=== PATIENT | female | born 1990 | race American Indian/Alaskan Native ===

== ENCOUNTER 2018-06-04 02:36 | Emergency (ER) | payer SELFPAY ==
[2018-06-04] MEDS ORDERED: ZOFRAN ODT PO ONE (03:18)
[2018-06-04 03:42] LABS: Basophils % (Auto) 0.5 % (0.0-1.8); Eosinophils # (Auto) 0.1 K/mm3 (0.0-0.4); Eosinophils % (Auto) 0.9 % (0.0-4.3); Hemoglobin 13.1 gm/dl (10.1-14.3); Lymphocytes # (Auto) 1.9 K/mm3 (1.2-5.4); Lymphocytes % (Auto) 21.9 % (13.4-35.0); Mean Corpuscular HGB Conc 34 % (30-34); Mean Corpuscular Hemoglobin 31 pg (28-32); Mean Corpuscular Volume 93 fl (79-97); Monocytes # (Auto) 0.6 K/mm3 (0.0-0.8); Monocytes % (Auto) 6.3 % (0.0-7.3); Platelet Count 344 K/mm3 (140-440); Red Blood Count 4.21 M/mm3 (3.65-5.03)
[2018-06-04 04:02] LABS: Alanine Aminotransferase 15 units/L (7-56); Albumin 4.2 g/dL (3.9-5); BUN/Creatinine Ratio 17; Blood Urea Nitrogen 10 mg/dL (7-17); Hemolysis Index 18
[2018-06-04] MEDS ORDERED: MOTRIN PO ONE (05:13)
[2018-06-04 05:56] LABS: Bilirubin,Urine NEG (Negative); Blood,Urine LG (Negative); Calcium Oxalate Crystals,Urine 2+; Color,Urine Yellow (Yellow); Mucus,Urine 1+ /HPF; Urobilinogen,Urine < 2.0 mg/dL (<2.0)
[2018-06-04 06:05] LABS: RBC,Urine > 182.0 /HPF (0.0-6.0)
--- NOTE | 2018-06-04 06:23 | Emergency Department Report ---
ED Abdominal Pain HPI - General Chief Complaint: Abdominal Pain Stated Complaint: ABD PAIN Time Seen by Provider: 06/04/18 06:21 Source: patient Mode of arrival: Ambulatory Limitations: No Limitations - History of Present Illness Initial Comments: 28-year-old female states that she has had right lower quadrant discomfort radiating to her flank area. States kidney stones. She does not work fever or chills. She states she vomited once with some mild ongoing nausea. 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 She denies diarrhea or any change in her bowel habits. She denies vaginal discharge. MD Complaint: abdominal pain -: Gradual, days(s) Location: RLQ Radiation: R flank Migration to: no migration Severity: moderate Quality: aching Consistency: intermittent Improves With: nothing Worsens With: nothing Associated Symptoms: denies other symptoms (except as above indicated) - Related Data Previous Rx's Medication Instructions Recorded Last Taken Type Tramadol HCl [Ultram] 50 mg PO Q6H PRN #10 tablet 06/04/18 Unknown Rx cefUROXime [Ceftin] 250 mg PO Q12H #10 tablet 06/04/18 Unknown Rx Allergies Allergy/AdvReac Type Severity Reaction Status Date / Time No Known Allergies Allergy Unverified 06/04/18 03:12 ED Review of Systems ROS: Stated complaint: ABD PAIN Other details as noted in HPI Constitutional: denies: chills, fever Eyes: denies: eye pain, eye discharge, vision change ENT: denies: ear pain, throat pain Respiratory: denies: cough, shortness of breath, wheezing Cardiovascular: denies: chest pain, palpitations Endocrine: no symptoms reported Gastrointestinal: abdominal pain, nausea, vomiting. denies: diarrhea Genitourinary: denies: urgency, dysuria, discharge Musculoskeletal: denies: back pain, joint swelling, arthralgia Skin: denies: rash, lesions Neurological: denies: headache, weakness, paresthesias Psychiatric: denies: anxiety, depression Hematological/Lymphatic: denies: easy bleeding, easy bruising ED Past Medical Hx - Past Medical History Previous Medical History?: No - Surgical History Past Surgical History?: Yes Additional Surgical History: kidney stones - Social History Smoking Status: Current Every Day Smoker Substance Use Type: None - Medications Home Medications: Home Medications Medication Instructions Recorded Confirmed Last Taken Type Tramadol HCl [Ultram] 50 mg PO Q6H PRN #10 tablet 06/04/18 Unknown Rx cefUROXime [Ceftin] 250 mg PO Q12H #10 tablet 06/04/18 Unknown Rx ED Physical Exam - General Limitations: No Limitations General appearance: alert, in no apparent distress - Head Head exam: Present: atraumatic, normocephalic - Eye Eye exam: Present: normal appearance. Absent: scleral icterus - ENT ENT exam: Present: mucous membranes moist - Neck Neck exam: Present: normal inspection - Respiratory Respiratory exam: Present: normal lung sounds bilaterally. Absent: respiratory distress - Cardiovascular Cardiovascular Exam: Present: regular rate, normal rhythm. Absent: systolic murmur, diastolic murmur, rubs, gallop - GI/Abdominal GI/Abdominal exam: Present: soft, normal bowel sounds. Absent: distended, tenderness, guarding, rebound, rigid, organomegaly, mass, bruit, pulsatile mass , hernia - Extremities Exam Extremities exam: Present: normal inspection - Back Exam Back exam: Present: normal inspection. Absent: CVA tenderness (R), CVA tenderness (L) - Neurological Exam Neurological exam: Present: alert, oriented X3, CN II-XII intact. Absent: motor sensory deficit - Psychiatric Psychiatric exam: Present: normal affect, normal mood - Skin Skin exam: Present: warm, dry, intact, normal color. Absent: rash ED Course Vital Signs 06/04/18 06/04/18 06/04/18 02:43 06:56 07:00 Temperature 98.0 F Pulse Rate 65 Respiratory 18 Rate Blood Pressure 133/99 98/53 O2 Sat by Pulse 95 100 100 Oximetry 06/04/18 06/04/18 06/04/18 07:31 08:08 08:30 Temperature Pulse Rate Respiratory Rate Blood Pressure 105/56 86/37 88/43 O2 Sat by Pulse 86 98 97 Oximetry 06/04/18 09:00 Temperature Pulse Rate Respiratory Rate Blood Pressure 93/50 O2 Sat by Pulse 99 Oximetry - Reevaluation(s) Reevaluation #1: On reexamination the patient states her symptoms have improved. She was given analgesia and an antiemetic. She had no vomiting. A repeat examination of her abdomen was totally benign. Her right sided abdominal pain does not clinically correlated with the nonspecific CT findings on the left. Further evaluation by acoustical tile drill press operator is recommended. She will be placed on an antibiotic pending urine culture. She has left-sided nephrolithiasis which I do not think could possibly clinically correlate. The patient is nontoxic and resting comfortably. 06/04/18 10:15 ED Medical Decision Making - Lab Data Result diagrams: 06/04/18 03:30 06/04/18 03:30 Laboratory Results - last 24 hr 06/04/18 06/04/18 06/04/18 03:30 03:30 03:30 WBC 8.8 RBC 4.21 Hgb 13.1 Hct 39.0 MCV 93 MCH 31 MCHC 34 RDW 14.0 Plt Count 344 Lymph % (Auto) 21.9 [place] % (Auto) 6.3 Eos % (Auto) 0.9 Baso % (Auto) 0.5 Lymph # 1.9 [place] # 0.6 Eos # 0.1 Baso # 0.0 Seg Neutrophils % 70.4 H Seg Neutrophils # 6.2 Sodium 140 Potassium 3.8 Chloride 104.8 Carbon Dioxide 23 Anion Gap 16 BUN 10 Creatinine 0.6 L Estimated GFR > 60 BUN/Creatinine Ratio 17 Glucose 99 Calcium 9.0 Total Bilirubin < 0.20 AST 20 ALT 15 Alkaline Phosphatase 72 Total Protein 7.2 Albumin 4.2 Albumin/Globulin Ratio 1.4 HCG, Qual Negative Urine Color Urine Turbidity Urine pH Ur Specific [place] Urine Protein Urine Glucose (UA) Urine Ketones Urine Blood Urine Nitrite Urine Bilirubin Urine Urobilinogen Ur Leukocyte Esterase Urine WBC (Auto) Urine RBC (Auto) U Epithel Cells (Auto) Calcium Oxalate Crystal Urine Mucus 06/04/18 05:28 WBC RBC Hgb Hct MCV MCH MCHC RDW Plt Count Lymph % (Auto) [place] % (Auto) Eos % (Auto) Baso % (Auto) Lymph # [place] # Eos # Baso # Seg Neutrophils % Seg Neutrophils # Sodium Potassium Chloride Carbon Dioxide Anion Gap BUN Creatinine Estimated GFR BUN/Creatinine Ratio Glucose Calcium Total Bilirubin AST ALT Alkaline Phosphatase Total Protein Albumin Albumin/Globulin Ratio HCG, Qual Urine Color Yellow Urine Turbidity Cloudy Urine pH 5.0 Ur Specific [place] 1.017 Urine Protein 30 mg/dl Urine Glucose (UA) Neg Urine Ketones Neg Urine Blood Lg Urine Nitrite Neg Urine Bilirubin Neg Urine Urobilinogen < 2.0 Ur Leukocyte Esterase Neg Urine WBC (Auto) 10.0 H Urine RBC (Auto) > 182.0 U Epithel Cells (Auto) 15.0 H Calcium Oxalate Crystal 2+ Urine Mucus 1+ - Radiology Data Radiology results: report reviewed Critical care attestation.: If time is entered above; I have spent that time in minutes in the direct care of this critically ill patient, excluding procedure time. ED Disposition Clinical Impression: Left nephrolithiasis Abdominal pain Qualifiers: Abdominal location: right lower quadrant Qualified Code(s): R10.31 - Right lower quadrant pain Disposition: TO HOME OR SELFCARE Is pt being admited?: No Does the pt Need Aspirin: No Condition: Stable Instructions: Abdominal Pain (ED), Kidney Stones (ED) Additional Instructions: Return to the emergency department any increased pain vomiting fever or chills. Rx for possible urinary tract infection. Follow-up on your CT report with a acoustical tile drill press operator. Follow-up on your kidney stone with a urologist. See referrals. Urine culture should be checked in 2-3 days. Prescriptions: cefUROXime [Ceftin] 250 mg PO Q12H #10 tablet Tramadol HCl [Ultram] 50 mg PO Q6H PRN #10 tablet PRN Reason: Pain , Severe (7-10) Referrals: PRIMARY CARE [Primary Care Provider] - 3-5 Days Time of Disposition: 10:27
[2018-06-04] MEDS ORDERED: NACL 0.9% 1000 ML 1,000 ML IV ONE (06:48)
[2018-06-04] MEDS ORDERED: TORADOL IV ONE (06:48)
[2018-06-04] MEDS ORDERED: ZOFRAN IV ONE ×2 (06:48→08:45)
[2018-06-04] MEDS ORDERED: MORPHINE IV ONE (06:48)
--- NOTE | 2018-06-04 07:58 | Cat Scan Report ---
CT ABDOMEN PELVIS WITHOUT CONTRAST: HISTORY: Right flank pain, kidney stones. COMPARISON: No recent comparison. TECHNIQUE: Helical CT in 1.25mm intervals without IV contrast. Sagittal and coronal reconstructions. FINDINGS: Lung bases: Normal. Liver: Normal. Biliary system: Normal. Pancreas: Normal. Spleen: Normal. Kidneys/ureters/bladder: The kidneys are normal size, contour and position. 2 calyceal stones measuring up to 3 mm are identified in the mid and inferior left kidney. No right calyceal stones are detected. The ureters are unremarkable. Normal bladder. Adrenal glands: Normal. Aorta: Normal. Intestines: Within normal limits given no oral contrast was administered. Appendix: Normal. Pelvic viscera: Fluid-filled tubular structures are identified in the left side of the pelvis adjacent to the uterus measuring up to 5.4 x 3.3 cm in axial plane. This may represent fluid filled bowel loops. Left ovarian cysts or left hydrosalpinx could be considered. The uterus and right adnexa are unremarkable. Ascites: Trace free pelvic fluid. Adenopathy: None. Musculoskeletal: Normal. IMPRESSION: Left nephrolithiasis. Question left ovarian cysts or left hydrosalpinx, see above. No acute inflammatory process is appreciated in
[2018-06-04 08:09] LABS: Amphetamine Screen,Urine PRESUMPTIVE NEGATIVE; Benzodiazepines Screen,Urine PRESUMPTIVE NEGATIVE; Cocaine Screen,Urine PRESUMPTIVE NEGATIVE; Methadone Screen,Urine PRESUMPTIVE NEGATIVE; Opiate Screen,Urine PRESUMPTIVE NEGATIVE
[2018-06-04 08:22] LABS: Cannabinoid Screen,Urine PRESUMPTIVE POSITIVE
[2018-06-04 10:41] VITALS: BP 99/45
== END 2018-06-04 10:57 | disposition home or self-care (01) ==
LOC: ED 02:36
DX: N20.0 Calculus of kidney (principal); F17.200 Nicotine dependence, unspecified, uncomplicated
CPT/HCPCS: 36415; 74176; 80053; 80307; 81001; 84703; 85025; 87086; 96361; 96374; 96375; 96376; 99284; J1885; J2270; J2405; J7030; Q0162

== ENCOUNTER 2018-06-07 10:12 | Emergency (ER) | payer SELFPAY ==
[2018-06-07] MEDS ORDERED: ZOFRAN ODT PO ONE ×2 (10:40→19:11)
[2018-06-07] MEDS ORDERED: DILAUDID IV ONE ×2 (12:28→15:48)
[2018-06-07] MEDS ORDERED: NACL 0.9% 1000 ML 1,000 ML IV ONE (12:28)
[2018-06-07] MEDS ORDERED: TORADOL IV ONE (12:28)
[2018-06-07] MEDS ORDERED: ZOFRAN IV ONE (12:28)
--- NOTE | 2018-06-07 12:30 | Emergency Department Report ---
Blank Doc - Documentation Documentation: Patient is a 28-year-old female said right lower quadrant pain for approximately 3 days. Patient does have a history of kidney stones but was seen 2 days ago and was found to have kidney stones only in the left kidney. There is no hydronephrosis is no hydrocephalus ureter. Patient had blood in the urine but it did not appear to be any obvious infection. Patient also had what could possibly be ovarian cyst on the left but again there is no pathology seen on the CT without contrast on the right side that would explain the patient 's pain. Patient pain is persisted. Patient has had nausea and vomiting. Patient will have a CT of abdomen and pelvis with contrast B redrawn patient be given this for symptomatic relief.
[2018-06-07 12:45] LABS: Basophils % (Auto) 0.6 % (0.0-1.8); Eosinophils % (Auto) 0.3 % (0.0-4.3); Hematocrit 38.4 % (30.3-42.9); Hemoglobin 12.9 gm/dl (10.1-14.3); Lymphocytes # (Auto) 1.8 K/mm3 (1.2-5.4); Lymphocytes % (Auto) 22.9 % (13.4-35.0); Mean Corpuscular HGB Conc 34 % (30-34); Mean Corpuscular Hemoglobin 31 pg (28-32); Mean Corpuscular Volume 91 fl (79-97); Monocytes # (Auto) 0.7 K/mm3 (0.0-0.8); Monocytes % (Auto) 8.7 % (0.0-7.3); Platelet Count 407 K/mm3 (140-440); Red Blood Count 4.22 M/mm3 (3.65-5.03); Red Cell Distribution Width 13.8 % (13.2-15.2)
[2018-06-07 13:04] LABS: BUN/Creatinine Ratio 14; Blood Urea Nitrogen 10 mg/dL (7-17); Calcium 8.8 mg/dL (8.4-10.2); Hemolysis Index 91
--- NOTE | 2018-06-07 15:08 | Emergency Department Report ---
<ANDI CADE FADUMO - Last Filed: 06/07/18 19:56> ED Abdominal Pain HPI - General Chief Complaint: Abdominal Pain Stated Complaint: ABD PAIN Time Seen by Provider: 06/07/18 12:09 - Related Data Previous Rx's Medication Instructions Recorded Last Taken Type cefUROXime [Ceftin] 250 mg PO Q12H #10 tablet 06/04/18 Unknown Rx Naproxen [Naprosyn] 500 mg PO BID PRN #12 tablet 06/07/18 Unknown Rx Ondansetron [Zofran Odt] 4 mg PO Q6H PRN #12 tab.rapdis 06/07/18 Unknown Rx Tramadol HCl [Ultram] 50 mg PO Q6H PRN #12 tablet 06/07/18 Unknown Rx metroNIDAZOLE [Metronidazole] 500 mg PO BID #10 tablet 06/07/18 Unknown Rx Allergies Allergy/AdvReac Type Severity Reaction Status Date / Time No Known Allergies Allergy Unverified 06/04/18 03:12 ED Review of Systems ROS: Stated complaint: ABD PAIN Other details as noted in HPI ED Past Medical Hx - Medications Home Medications: Home Medications Medication Instructions Recorded Confirmed Last Taken Type cefUROXime [Ceftin] 250 mg PO Q12H #10 tablet 06/04/18 Unknown Rx Naproxen [Naprosyn] 500 mg PO BID PRN #12 tablet 06/07/18 Unknown Rx Ondansetron [Zofran Odt] 4 mg PO Q6H PRN #12 tab.rapdis 06/07/18 Unknown Rx Tramadol HCl [Ultram] 50 mg PO Q6H PRN #12 tablet 06/07/18 Unknown Rx metroNIDAZOLE [Metronidazole] 500 mg PO BID #10 tablet 06/07/18 Unknown Rx ED Course Vital Signs 06/07/18 06/07/18 06/07/18 10:35 12:58 12:59 Temperature 98.2 F Pulse Rate 51 L Respiratory 18 18 18 Rate Blood Pressure 125/86 Blood Pressure [Right] O2 Sat by Pulse 100 Oximetry 06/07/18 06/07/18 06/07/18 15:49 19:02 19:11 Temperature Pulse Rate 58 L Respiratory 18 18 18 Rate Blood Pressure Blood Pressure 130/84 [Right] O2 Sat by Pulse 99 Oximetry ED Medical Decision Making - Lab Data Result diagrams: 06/07/18 12:36 06/07/18 12:32 - Medical Decision Making Wet prep positive for Trichomonas and clue cells, negative yeast. Patient informed of results. Patient will be treated for bacterial vaginitis Trichomonas with metronidazole. Patient given metronidazole 2 g by mouth once while in ER. Start metronidazole 500 mg by mouth twice a day 5 days. Discussed prevention options. Follow-up with FIELD EDUCATION DIRECTOR. Discharged home in stable condition. Critical care attestation.: If time is entered above; I have spent that time in minutes in the direct care of this critically ill patient, excluding procedure time. ED Disposition Clinical Impression: History of renal stone, Right ureter dilated, Complex cyst of left ovary, Bacterial vaginitis, Trichomoniasis Abdominal pain Qualifiers: Abdominal location: lower abdomen, unspecified Qualified Code(s): R10.30 - Lower abdominal pain, unspecified Nausea and vomiting Qualifiers: Vomiting type: unspecified Vomiting Intractability: non-intractable Qualified Code(s): R11.2 - Nausea with vomiting, unspecified Uterine fibroid Qualifiers: Uterine leiomyoma location: unspecified location Qualified Code(s): D25.9 - Leiomyoma of uterus, unspecified Ovarian cyst Qualifiers: Laterality: right Qualified Code(s): N83.201 - Unspecified ovarian cyst, right side Disposition: TO HOME OR SELFCARE Condition: Stable Instructions: Bacterial Vaginosis (ED), Ovarian Cyst (ED), Uterine Fibroids (ED ), Sexually Transmitted Diseases (ED), Safe Sex (ED), Renal Colic (ED), Acute Nausea and Vomiting (ED), Abdominal Pain (ED) Additional Instructions: Please follow up with FIELD EDUCATION DIRECTOR at [facility] in 4 days. Call tomorrow to schedule an appointment. Ultrasound showing that he have uterine fibroid and also complex cyst. This is located in the left ovary. Take naproxen for mild pain but please do not take on empty stomach as it can cause nausea Take Ultram for moderate to severe pain but please do not drive or operate heavy machinery while taking this medication Take Zofran for nausea If your symptoms return, return to the emergency room Prescriptions: metroNIDAZOLE [Metronidazole] 500 mg PO BID #10 tablet Naproxen [Naprosyn] 500 mg PO BID PRN #12 tablet PRN Reason: mild pain Ondansetron [Zofran Odt] 4 mg PO Q6H PRN #12 tab.rapdis PRN Reason: Nausea Tramadol HCl [Ultram] 50 mg PO Q6H PRN #12 tablet PRN Reason: Pain , Severe (7-10) Referrals: [facility] [Outside] - 06/11/18 STACY ASHLEY MD [Staff Physician] - 06/11/18 Forms: Work/School Release Form(ED), STI Treatment and Prevention Time of Disposition: 20:03 <PRESTON PACHECO - Last Filed: 06/10/18 12:00> ED Abdominal Pain HPI - General Source: patient Mode of arrival: Wheelchair Limitations: No Limitations - History of Present Illness Initial Comments: Patient is a 28-year-old female said right lower quadrant pain for approximately 3 days. Patient does have a history of kidney stones but was seen 2 days ago and was found to have kidney stones only in the left kidney. There is no hydronephrosis is no hydrocephalus ureter. Patient had blood in the urine but it did not appear to be any obvious infection. Patient also had what could possibly be ovarian cyst on the left but again there is no pathology seen on the CT without contrast on the right side that would explain the patient 's pain. Patient pain is persisted. Patient has had nausea and vomiting. She reports that her pain is 10 out of 10 and crampy and sharp. Pain is constant and reports that she was taking tramadol but she ran out. Patient also discharged home on cefuroxime twice daily for 5 days and Zofran ODT. She did not follow-up as instructed. MD Complaint: abdominal pain, other (nausea and vomiting) Onset/Timin -: days(s) Location: LLQ Radiation: RLQ Migration to: no migration Severity: severe Severity scale (0 -10): 10 Quality: cramping, sharp Consistency: constant Improves With: nothing Worsens With: nothing Context: other (patient with similar pain 2 days ago) Associated Symptoms: nausea, vomiting. denies: diarrhea, fever, chills, constipation, dysuria, hematemesis, hematochezia, melena, hematuria, anorexia, other Treatments Prior to Arrival: other - Related Data LMP Date: 06/07/18 ED Review of Systems Constitutional: denies: chills, fever Eyes: vision change. denies: eye pain, eye discharge ENT: denies: ear pain, throat pain, congestion Respiratory: denies: cough, shortness of breath, SOB with exertion, SOB at rest , stridor, wheezing Cardiovascular: denies: chest pain, palpitations, edema, syncope Endocrine: no symptoms reported Gastrointestinal: abdominal pain, nausea, vomiting. denies: diarrhea, hematemesis Genitourinary: denies: urgency, dysuria, discharge Musculoskeletal: denies: back pain, joint swelling, arthralgia, myalgia Skin: denies: rash, lesions Neurological: denies: headache, weakness, paresthesias, abnormal gait, vertigo Hematological/Lymphatic: denies: easy bleeding, easy bruising ED Past Medical Hx - Past Medical History Previous Medical History?: Yes Additional medical history: Hx of kidney stones. History of PID at age 17 - Surgical History Past Surgical History?: Yes Additional Surgical History: kidney stones - Family History Family history: hypertension - Social History Smoking Status: Current Every Day Smoker Substance Use Type: None ED Physical Exam - General Limitations: No Limitations General appearance: alert, in no apparent distress - Head Head exam: Present: atraumatic, normocephalic, normal inspection - Eye Eye exam: Present: normal appearance, PERRL, EOMI Pupils: Present: normal accommodation - ENT ENT exam: Present: normal exam, normal orophraynx, mucous membranes moist, TM's normal bilaterally, normal external ear exam - Neck Neck exam: Present: normal inspection, full ROM. Absent: tenderness, lymphadenopathy - Respiratory Respiratory exam: Present: normal lung sounds bilaterally. Absent: respiratory distress, chest wall tenderness - Cardiovascular Cardiovascular Exam: Present: regular rate, normal rhythm. Absent: systolic murmur, diastolic murmur, rubs, gallop - GI/Abdominal GI/Abdominal exam: Present: soft, tenderness, guarding, normal bowel sounds. Absent: distended, rebound, rigid, organomegaly, mass, pulsatile mass, hernia - External exam: Present: normal external exam, bleeding (from menses). Absent: erythema, swelling, lesions, lacerations, ecchymosis Speculum exam: Present: normal speculum exam, cervical discharge (minimal), vaginal bleeding (from menses). Absent: erythema, vaginal discharge, tissue, laceration Bi-manual exam: Present: normal bi-manual exam, adnexal tenderness (left). Absent: cervical motion tendernes, adnexal mass, uterine enlargement, uterine tenderness - Expanded Exam Expanded Female exam: Absent: vaginal laceration, tissue present in vagina, herpetic lesions, vulvar erythema, vulvar tenderness, foreign body External exam: Present: normal Speculum exam: Present: cervical OS closed. Absent: vaginal discharge - Extremities Exam Extremities exam: Present: normal inspection, full ROM, normal capillary refill , other (No cce. + 2 pulses in all extremities, no neurovascular compromise). Absent: tenderness, pedal edema, joint swelling, calf tenderness - Back Exam Back exam: Present: normal inspection, full ROM, other (embolism without any difficulties). Absent: tenderness, CVA tenderness (R), CVA tenderness (L), muscle spasm, paraspinal tenderness, vertebral tenderness, rash noted - Neurological Exam Neurological exam: Present: alert, oriented X3, normal gait, reflexes normal. Absent: motor sensory deficit - Psychiatric Psychiatric exam: Present: normal affect, normal mood - Skin Skin exam: Present: warm, dry, intact, normal color. Absent: rash ED Course - Reevaluation(s) Reevaluation #1: 06/07/18 13:10 Patient receives Zofran 4 mg ODT in triage area for nausea and vomiting with minimal relief. She received normal saline 1 L bolus, Zofran 4 mg IV and Toradol 30 mg IV along with hydromorphone in one milligrams IV with some relief of pain. Reevaluation #2: 06/07/18 15:50 Patient received Dilaudid 1 mg IV for continued abdominal pain. She is to have pelvic ultrasound and transvaginal ultrasound at radiology recommendation. Previous CT scan of the abdomen and pelvis from 06/04/2018 with suggestion of a passed kidney stone. Blood pressure is better. Reevaluation #3: 06/07/18 17:22 Patient pain is controlled. Pelvic exam done and specimen sent. Awaiting urinalysis and ultrasound to be done. Patient abdominal exam is better Reevaluation #4: 06/07/18 18:05 Patient is stable. Pain control abdominal exam is stable. 06/07/18 19:06 Patient given [place]vall 10/325 mg one tablet by mouth for pain to lower abdomen more on the left side. ED Medical Decision Making - Lab Data Result diagrams: 06/07/18 12:36 06/07/18 12:32 Lab Results 06/07/18 06/07/18 Range/Units 12:32 12:36 WBC 7.8 (4.5-11.0) K/mm3 RBC 4.22 (3.65-5.03) M/mm3 Hgb 12.9 (10.1-14.3) gm/dl Hct 38.4 (30.3-42.9) % MCV 91 (79-97) fl MCH 31 (28-32) pg MCHC 34 (30-34) % RDW 13.8 (13.2-15.2) % Plt Count 407 (140-440) K/mm3 Lymph % (Auto) 22.9 (13.4-35.0) % [place] % (Auto) 8.7 H (0.0-7.3) % Eos % (Auto) 0.3 (0.0-4.3) % Baso % (Auto) 0.6 (0.0-1.8) % Lymph # 1.8 (1.2-5.4) K/mm3 [place] # 0.7 (0.0-0.8) K/mm3 Eos # 0.0 (0.0-0.4) K/mm3 Baso # 0.0 (0.0-0.1) K/mm3 Seg Neutrophils % 67.5 (40.0-70.0) % Seg Neutrophils # 5.3 (1.8-7.7) K/mm3 Sodium 139 (137-145) mmol/L Potassium 3.6 (3.6-5.0) mmol/L Chloride 104.5 (98-107) mmol/L Carbon Dioxide 19 L (22-30) mmol/L Anion Gap 19 mmol/L BUN 10 (7-17) mg/dL Creatinine 0.7 (0.7-1.2) mg/dL Estimated GFR > 60 ml/min BUN/Creatinine Ratio 14 % Glucose 102 H (65-100) mg/dL Calcium 8.8 (8.4-10.2) mg/dL Lab Results 06/07/18 06/07/18 06/07/18 Range/Units 12:32 12:36 16:40 WBC 7.8 (4.5-11.0) K/mm3 RBC 4.22 (3.65-5.03) M/mm3 Hgb 12.9 (10.1-14.3) gm/dl Hct 38.4 (30.3-42.9) % MCV 91 (79-97) fl MCH 31 (28-32) pg MCHC 34 (30-34) % RDW 13.8 (13.2-15.2) % Plt Count 407 (140-440) K/mm3 Lymph % (Auto) 22.9 (13.4-35.0) % [place] % (Auto) 8.7 H (0.0-7.3) % Eos % (Auto) 0.3 (0.0-4.3) % Baso % (Auto) 0.6 (0.0-1.8) % Lymph # 1.8 (1.2-5.4) K/mm3 [place] # 0.7 (0.0-0.8) K/mm3 Eos # 0.0 (0.0-0.4) K/mm3 Baso # 0.0 (0.0-0.1) K/mm3 Seg Neutrophils % 67.5 (40.0-70.0) % Seg Neutrophils # 5.3 (1.8-7.7) K/mm3 Sodium 139 (137-145) mmol/L Potassium 3.6 (3.6-5.0) mmol/L Chloride 104.5 (98-107) mmol/L Carbon Dioxide 19 L (22-30) mmol/L Anion Gap 19 mmol/L BUN 10 (7-17) mg/dL Creatinine 0.7 (0.7-1.2) mg/dL Estimated GFR > 60 ml/min BUN/Creatinine Ratio 14 % Glucose 102 H (65-100) mg/dL Calcium 8.8 (8.4-10.2) mg/dL Urine Color Straw (Yellow) Urine Turbidity Clear (Clear) Urine pH 7.0 (5.0-7.0) Ur Specific [place] 1.039 H (1.003-1.030) Urine Protein <15 mg/dl (Negative) mg/dL Urine Glucose (UA) Neg (Negative) mg/dL Urine Ketones 20 (Negative) mg/dL Urine Blood Lg (Negative) Urine Nitrite Neg (Negative) Urine Bilirubin Neg (Negative) Urine Urobilinogen < 2.0 (<2.0) mg/dL Ur Leukocyte Esterase Neg (Negative) Urine WBC (Auto) 2.0 (0.0-6.0) /HPF Urine RBC (Auto) 6.0 (0.0-6.0) /HPF U Epithel Cells (Auto) 2.0 (0-13.0) /HPF Wet prep- CHL-specimen sent and pending - Radiology Data Radiology results: report reviewed CT of the abdomen with contrast dictated by radiologist and report reviewed by myself. Please refer to report below. Patient also had ultrasound transvaginal and pelvic complete which was dictated by radiologist's report reviewed by myself. Patient: IZA DUVAL MR#: [id number] : 1990 Acct:[id number] Age/Sex: 28 / F ADM Date: 06/07/18 Loc: ED Attending Dr: Ordering Physician: SARAH MONTERO MD Date of Service: 06/07/18 Procedure(s): CT abdomen pelvis w con Accession Number(s): [id number] cc: SARAH MONTERO MD CT abdomen and pelvis with contrast: Right flank pain; history of renal calculus disease. Following administration of IV contrast transverse images were obtained of the low chest and ischium. Coronal and sagittal 2-D reformatted images included. Comparison made to noncontrasted scan on June 04, 2018. The visualized lung bases are clear. The abdominal organs are unremarkable. No evidence renal calculus in the kidneys have a normal size and contour. On the initial images the renal pelvis and proximal ureter a are mildly dilated on the right on the delayed images the findings persist. No definite ureteral calculus however can't be identified nor is there any calculus within the urinary bladder. The bowel is unopacified. There are some slightly fluid filled and dilated loops of small bowel in the right lower quadrant. There is a moderate volume of fecal matter also noted in the ascending colon with mild dilatation of the colon. The appendix is visualized with no evidence of inflammation. Images of the pelvis demonstrate dilated fluid filled structures just anterior to the rectum and just above the uterus. When compared to her prior examination the right ureter appears somewhat more dilated. There were also some dilated fluid-filled bowel loops on the prior exam but in a different location. The dilated structures in the low pelvis are unchanged. Impression: 1. Suspicion of a non-calcified calculus or possibly recently passed calculus on the right with mild dilatation of the proximal collecting system. 2. The dilated pelvic structures could represent bowel but since they have not changed the likelihood of a left hydrosalpinx should be evaluated with ultrasound. 3. Nonspecific dilated focal small bowel loops. Transcribed By: JOSSIE Dictated By: MARGARET BECKER MD Electronically Authenticated By: MARGARET BECKER MD Signed Date/Time: 06/07/18 150 DD/ 1456 TD/TT: 06/07/18 1507 Findings [facility] [address] [place] [address] Ultrasound Report Signed Patient: IZA DUVAL MR#: [id number] : 1990 Acct:[id number] Age/Sex: 28 / F ADM Date: 06/07/18 Loc: ED Attending Dr: Ordering Physician: RYAN BISHOP Date of Service: 06/07/18 Procedure(s): US transvaginal Accession Number(s): [id number] cc: RYAN BISHOP FINAL REPORT EXAM: US TRANSVAGINAL HISTORY: recomm by radiologist's on CT scan/abdominal. LMP 06/05/2018 TECHNIQUE: Ultrasound of the pelvis using transabdominal and transvaginal imaging PRIORS: CT a/P 06/07/2018 FINDINGS: Uterus: Uterus is normal in size and heterogeneous in echogenicity . The uterus measures 7.5 x 2.7 x 4.9 cm in size. There is a hypoechoic fibroid located in the left side of the fundus measuring 1.4 x 1.0 x 1.2 cm. Along the right side of the uterine fundus, there is a multiloculated cystic focus measuring 2.9 x 1.8 x 3.0 cm. This may represent enlarged fibroid versus a dilated fallopian tube. It is also adjacent to the right ovary. Endometrial stripe: Normal and uniform in thickness measuring 3.7 mm. Ovaries: Both ovaries appear normal in size and echogenicity with normal blood flow bilaterally. The right ovary measures 3.0 x 2.5 x 2.5 cm and the left ovary measures 3.8 x 2.7 x 2.9 cm in size. An avascular rounded hypoechoic area in the left ovary measures 1.5 x 1.5 x 1.8 cm. This may represent a complex cyst. Other: There is no evidence for solid adnexal mass or free fluid in the cul-de-sac seen. IMPRESSION: 1. Hypoechoic fibroid in the left side of the uterine fundus 2. Multiloculated cystic focus along the right side of the uterine fundus. Although this could represent a cystic fibroid, it is more likely to represent a dilated fallopian tube as it is directly adjacent to the right ovary 3. Hypoechoic focus in the left ovary, likely a complex cyst. Transcribed By: [facility] Dictated By: BINTA MACIAS MD Electronically Authenticated By: BINTA MACIAS MD Signed Date/Time: 06/07/181911 DD/ 11 TD/TT: 06/07/181911 - Medical Decision Making Wet prep positive for less than 20% to cell and Trichomonas. Please disregard noted above that patient is positive for Trichomonas Patient with abdominal pain, nausea and vomiting, ovarian cyst, uterine fibroid , bacterial vaginosis, Trichomonas Patient educated on diagnosis and she was discharged home on Flagyl, Zosyn, naproxen and tramadol. 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 Discharged home in stable condition. Vital signs are stable she is afebrile. She was also informed by the provider to follow-up with health department for repeat STD testing and in 7-10 days. - Differential Diagnosis kidney stone, abdominal/pelvic pathology, PID, UTI ED Disposition Is pt being admited?: No Does the pt Need Aspirin: No
--- NOTE | 2018-06-07 15:25 | Cat Scan Report ---
CT abdomen and pelvis with contrast: Right flank pain; history of renal calculus disease. Following administration of IV contrast transverse images were obtained of the low chest and ischium. Coronal and sagittal 2-D reformatted images included. Comparison made to noncontrasted scan on June 04, 2018. The visualized lung bases are clear. The abdominal organs are unremarkable. No evidence renal calculus in the kidneys have a normal size and contour. On the initial images the renal pelvis and proximal ureter a are mildly dilated on the right on the delayed images the findings persist. No definite ureteral calculus however can't be identified nor is there any calculus within the urinary bladder. The bowel is unopacified. There are some slightly fluid filled and dilated loops of small bowel in the right lower quadrant. There is a moderate volume of fecal matter also noted in the ascending colon with mild dilatation of the colon. The appendix is visualized with no evidence of inflammation. Images of the pelvis demonstrate dilated fluid filled structures just anterior to the rectum and just above the uterus. When compared to her prior examination the right ureter appears somewhat more dilated. There were also some dilated fluid-filled bowel loops on the prior exam but in a different location. The dilated structures in the low pelvis are unchanged. Impression: 1. Suspicion of a non-calcified calculus or possibly recently passed calculus on the right with mild dilatation of the proximal collecting system. 2. The dilated pelvic structures could represent bowel but since they have not changed the likelihood of a left hydrosalpinx should be evaluated with ultrasound. 3. Nonspecific dilated focal small bowel loops.
[2018-06-07] MEDS ORDERED: DILAUDID ONE (15:49)
[2018-06-07 17:32] LABS: Bilirubin,Urine NEG (Negative); Blood,Urine LG (Negative); Color,Urine Straw (Yellow); Protein,Urine <15 mg/dL mg/dL (Negative); Urobilinogen,Urine < 2.0 mg/dL (<2.0)
[2018-06-07 19:03] VITALS: BP 130/84
[2018-06-07] MEDS ORDERED: NORCO 10/325 PO ONE (19:04)
[2018-06-07] MEDS ORDERED: ZOFRAN ODT ONE (19:08)
[2018-06-07] MEDS ORDERED: NORCO 10/325 ONE (19:08)
--- NOTE | 2018-06-07 19:12 | Ultrasound Report ---
FINAL REPORT EXAM: US PELVIC COMPLETE HISTORY: recomm by radiologist's on CT scan/abdominal. LMP 06/05/2018 TECHNIQUE: Ultrasound of the pelvis using transabdominal and transvaginal imaging PRIORS: CT a/P 06/07/2018 FINDINGS: Uterus: Uterus is normal in size and heterogeneous in echogenicity . The uterus measures 7.5 x 2.7 x 4.9 cm in size. There is a hypoechoic fibroid located in the left side of the fundus measuring 1.4 x 1.0 x 1.2 cm. Along the right side of the uterine fundus, there is a multiloculated cystic focus measuring 2.9 x 1.8 x 3.0 cm. This may represent enlarged fibroid versus a dilated fallopian tube. It is also adjacent to the right ovary. Endometrial stripe: Normal and uniform in thickness measuring 3.7 mm. Ovaries: Both ovaries appear normal in size and echogenicity with normal blood flow bilaterally. The right ovary measures 3.0 x 2.5 x 2.5 cm and the left ovary measures 3.8 x 2.7 x 2.9 cm in size. An avascular rounded hypoechoic area in the left ovary measures 1.5 x 1.5 x 1.8 cm. This may represent a complex cyst. Other: There is no evidence for solid adnexal mass or free fluid in the cul-de-sac seen. IMPRESSION: 1. Hypoechoic fibroid in the left side of the uterine fundus 2. Multiloculated cystic focus along the right side of the uterine fundus. Although this could represent a cystic fibroid, it is more likely to represent a dilated fallopian tube as it is directly adjacent to the right ovary 3. Hypoechoic focus in the left ovary, likely a complex cyst.
[2018-06-07] MEDS ORDERED: FLAGYL PO ONE (20:05)
== END 2018-06-07 20:49 | disposition home or self-care (01) ==
LOC: ED 10:12
DX: D25.9 Leiomyoma of uterus, unspecified (principal); N83.201 Unspecified ovarian cyst, right side; N76.0 Acute vaginitis; B96.89 Other specified bacterial agents as the cause of diseases classified elsewhere; A59.9 Trichomoniasis, unspecified; F17.200 Nicotine dependence, unspecified, uncomplicated
CPT/HCPCS: 36415; 74177; 76830; 76856; 80048; 81001; 85025; 87210; 87591; 96361; 96374; 96375; 96376; 99285; J1170; J1885; J2405; J7030; Q9967; Q0162